=== PATIENT | female | born 2005 | race African-American/Black ===

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

== ENCOUNTER 2025-03-22 19:41 | Emergency (ER) | payer OTHER, SELFPAY ==
[2025-03-22] MEDS ORDERED: ACETAMINOPHEN 500 MG TAB ONE (20:50)
[2025-03-22] MEDS ORDERED: NA CHLORIDE 0.9% 1,000 ML ONE (21:51)
[2025-03-22] MEDS ORDERED: ONDANSETRON 4 MG/2 ML VIAL ONE (21:51)
[2025-03-22 22:02] LABS: Calcium Oxalate Crystals- Ur Few /HPF (None Seen); Sqamous Epithelial 20-50 /HPF (None Seen); Urine Crystals Unidentified Few /HPF (None Seen); Urine Culture Reflex Order REFLEXED; Urine Microscopic Reflex YN ORDER UMIC
[2025-03-22 22:14] LABS: Influenza A Ag Negative; Influenza B Ag Negative; SARS-CoV-2 Antigen Rapid Res Negative (Negative)
[2025-03-22 22:19] LABS: Absolute Lymphocytes (CBC) 0.5 K/uL (0.7-4.9); Hematocrit 41.4 % (36.0-45.0); Hemoglobin 13.3 g/dL (12.0-15.0); MCH 23.5 pg (27.0-35.0); MCHC 32.1 g/dL (32.0-36.0); MCV 73.3 fL (80-100); MPV 8.4 fL (7.6-11.3); Nucleated RBC Absolute Count 0.0 (0-0); Nucleated Red Blood Cells % 0.0 % (0-0); RBC Red Blood Cell Count 5.65 M/uL (3.86-4.86); White Blood Count 8.20 thou/uL (4.3-10.9)
[2025-03-22 22:23] LABS: ALT/SGPT 43.0 U/L (13-56); AST/SGOT 19.0 U/L (15-37); Albumin 3.4 g/dL (3.4-5.0); Albumin/Globulin Ratio 0.7 (1.1-1.8); Alkaline Phosphatase 77.0 U/L (45-117); Anion Gap 9.6 mEq/L (5.0-15.0); BUN Blood Urea Nitrogen 10.0 mg/dL (7-18); Globulin 4.7 g/dL (2.3-3.5); Glucose Level 115.0 mg/dL (74-106); Lipase 37.0 U/L (13-75); Potassium 3.6 mEq/L (3.5-5.1)
[2025-03-22] MEDS ORDERED: CEFTRIAXONE 1000 MG/VIAL ONE (22:47)
[2025-03-22] MEDS ORDERED: NITROFURAN MACRO 100 MG CAP PO ONE (22:47)
--- NOTE | 2025-03-23 00:25 | EDPHYS ---
Physician Documentation [facility] Name: Etelvina Vickers Age: 19 yrs Sex: Female : 2005 Arrival Date: 03/22/2025 Time: 19:41 Bed DX2 Private MD: ED Physician Tacos Larson HPI: 03/22 21:00 This 19 yrs old Black Female presents to ER via Ambulatory with complaints of Vomiting, cp Leg Pain, Back Pain. 21:00 The patient presents to the emergency department with nausea, that is moderate, cp vomiting, that is intermittent, diarrhea, that is intermittent. Onset: The symptoms/episode began/occurred this morning. 21:00 Possible causes: sick contacts, by family, sister. Associated signs and symptoms: cp Pertinent positives: fever, low back pain. Severity of symptoms: in the emergency department the symptoms are unchanged despite home interventions. 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 - Infectious Disease History:: Denies. - Social history:: Smoking status: Patient denies any tobacco usage or history of. ROS: 21:05 Constitutional: Positive for fever, cp 21:05 Eyes: Negative for injury, pain, redness, and discharge, cp 21:05 ENT: Negative for drainage from ear(s), ear pain, difficulty swallowing, difficulty handling secretions, 21:05 Cardiovascular: Negative for chest pain, 21:05 Respiratory: Negative for cough, 21:05 Abdomen/GI: Positive for nausea, vomiting, diarrhea, Negative for abdominal pain, 21:05 Back: Positive for pain at rest, pain with movement, 21:05 Neuro: Negative for altered mental status, 21:05 All other systems are negative, Exam: 21:10 Constitutional: The patient appears in no acute distress, alert, awake, non-toxic, well cp developed, well nourished, obese, uncomfortable, 21:10 Head/Face: Normocephalic, atraumatic. cp 21:10 Eyes: Periorbital structures: appear normal, Conjunctiva: normal, no exudate, no injection, Sclera: no appreciated abnormality, Lids and lashes: appear normal, bilaterally, 21:10 ENT: External ear(s): are unremarkable, Nose: is normal, Mouth: Lips: moist, Oral mucosa: moist, Posterior pharynx: Airway: no evidence of obstruction, patent, erythema, that is mild, exudate, is not appreciated, 21:10 Neck: ROM/movement: is normal, is supple, without pain, no range of motions limitations, no meningismus, 21:10 Chest/axilla: Inspection: normal, 21:10 Cardiovascular: Rate: tachycardic, 21:10 Respiratory: the patient does not display signs of respiratory distress, Respirations: normal, no use of accessory muscles, no retractions, labored breathing, is not present, Breath sounds: are clear throughout, no decreased breath sounds, no stridor, no wheezing, 21:10 Abdomen/GI: Inspection: obese Palpation: abdomen is soft and non-tender, in all quadrants, 21:10 Back: pain, that is mild, of the low back area, ROM is normal, 21:10 Skin: no rash present. Vital Signs: 20:28 BP 140 / 99; Pulse 133; Resp 20; Temp 101.9; Pulse Ox 99% ; Weight 111.13 kg; Height 5 me1 ft. 6 in. ; Pain 10/26; 03/23 00:13 BP 120 / 65; Pulse 108; Resp 18; Pulse Ox 100% on R/A; oe 00:32 BP 123 / 67; Pulse 87; Resp 19; Temp 98.7(O); Pulse Ox 100% on R/A; vk 03/22 20:28 Body Mass Index 39.54 (111.13 kg, 167.64 cm) - Percentile 98.3 % me1 03/22 20:28 Pain Scale: Adult me1 MDM: 03/22 20:29 Medical Screening Exam initiated cp 23:00 Differential diagnosis: gastritis, cholecystitis, pancreatitis, appendicitis, cp diverticulitis, viral gastroenteritis, gastroenteritis, sepsis. 03/23 00:23 Data reviewed: vital signs, nurses notes, lab test result(s), and as a result, I will cp discharge patient. 00:23 Care significantly affected by the following chronic conditions: Hypertension, Obesity. cp 00:23 Counseling: I had a detailed discussion with the patient and/or guardian regarding the cp historical points, exam findings, and any diagnostic results supporting the discharge/admit diagnosis, lab results, to return to the emergency department if symptoms worsen or persist or if there are any questions or concerns that arise at home. Response to treatment: the patient's symptoms have mildly improved after treatment, and as a result, I will discharge patient. 03/22 21:33 Order name: CBC with Diff; Complete Time: 22:42 cp 03/22 21:33 Order name: CMP; Complete Time: 22:42 cp 03/22 21:33 Order name: Lipase; Complete Time: 22:42 cp 03/22 21:33 Order name: UA Rfx Andi Cult if indicated; Complete Time: 22:22 cp 03/22 22:22 Interpretation: Normal except: [facility] Extremely Turbid; UBLD Trace; UPROT TRACE; UUROB cp 1+; UESTR 500; UWBC >50; URBC >50; SQEPI 20-50. 03/22 21:33 Order name: Test, Urine; Complete Time: 22:22 cp 03/22 21:33 Order name: COVID-19 Ag + Flu A+B Ag; Complete Time: 22:22 cp 03/22 22:06 Order name: Urine Culture EDMS 03/22 21:33 Order name: IV Saline Lock; Complete Time: 21:58 cp 03/22 21:33 Order name: Labs collected and sent; Complete Time: 21:58 cp 03/22 22:43 Order name: PO challenge; Complete Time: 00:30 cp 03/22 22:44 Order name: Vital Signs: please update to include temp; Complete Time: 00:41 cp Administered Medications: 03/22 21:00 Drug: Acetaminophen PO 1000 mg PO once Route: PO; me1 21:58 Follow up: Response: No adverse reaction ha1 21:58 Not Given (Duplicate Order): ns 0.9% 1000 ml IV at 1000 ml once; to be given as a bolus ha1 over 60 minutes 22:04 Drug: Ondansetron IVP 4 mg IVP once; over 2 minutes Route: IVP; Site: left antecubital; ha1 22:04 Drug: NS 0.9% IV 1000 ml IV at 1 bolus Per protocol; to be given as a bolus over 60 ha1 minutes Route: IV; Rate: 1 bolus; Site: left antecubital; 22:52 Drug: Rocephin IV 1 grams IV at calculated rate once; Given slow IV push per pharmacy instructions Route: IV; Rate: calculated rate; Site: left antecubital; 22:52 Drug: Nitrofurantoin PO 100 mg PO once; administer with food Route: PO; kl Disposition: 03/23 19:10 Co-signature as Attending Physician, Tacos Larson MD I agree with the assessment sp4 and plan of care. I reviewed the patient's care provided by the Advanced Practice Provider and agree with the diagnosis and treatment plan. Disposition Summary: 03/23/25 00:24 Discharge Ordered Notes: Location: Home cp Problem: new cp Symptoms: have improved cp Condition: Stable cp Diagnosis - UTI/ Urinary tract infection, site not specified cp - Diarrhea, unspecified cp - Nausea with vomiting, unspecified cp - Dehydration cp Followup: cp - With: Private Physician - When: 2 - 3 days - Reason: Worsening of condition Discharge Instructions: - Discharge Summary Sheet cp - Food Choices to Help Relieve Diarrhea, Adult cp - Dehydration, Adult cp - Diarrhea, Adult cp - Nausea and Vomiting, Adult cp - Urinary Tract Infection, Adult cp Forms: - Medication Reconciliation Form cp - Antibiotic Education cp - Prescription Opioid Use cp - Patient Portal Instructions cp - Leadership Thank You Letter cp Prescriptions: - Macrobid 100 mg Oral Capsule - take 1 capsule ORAL route every 12 hours for 7 days; 14 capsule; Refills: 0, cp Product Selection Permitted - ondansetron 8 mg Oral Tablet,disintegrating - take 1 tablet ORAL route every 12 hours As needed; 15 tablet; Refills: 0, cp Product Selection Permitted Signatures: Dispatcher [employer] Rita Andujar RN RN Shen Lowe PA-C PAQuynh Mcqueen cp RN RN ha1 Tacos Larson MD MD sp4 Jennifer Aviles RN RN me1
--- NOTE | 2025-03-23 00:25 | ER ---
Nurse's Notes [facility] Name: Etelvina Vickers Age: 19 yrs Sex: Female : 2005 Arrival Date: 03/22/2025 Time: 19:41 Bed DX2 Private MD: Diagnosis: UTI/ Urinary tract infection, site not specified;Diarrhea, unspecified;Nausea with vomiting, unspecified;Dehydration Presentation: 03/22 20:28 Chief complaint: Patient states: n/v/d, fever, chills, body aches 5/10 (left upper back me1 and posterior left knee), wheezing that started this morning. Coronavirus screen: Vaccine status: Patient reports being unvaccinated. Ebola Screen: No symptoms or risks identified at this time. Initial Sepsis Screen: Does the patient meet any 2 criteria? HR > 90 bpm. Does the patient have a suspected source of infection? No. Patient's initial sepsis screen is negative. Risk Assessment: Do you want to hurt yourself or someone else? Patient reports no desire to harm self or others. Onset of symptoms was March 22, 2025 at 08:30. 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 - Infectious Disease History:: Denies. - Social history:: Smoking status: Patient denies any tobacco usage or history of. Vital Signs: 20:28 BP 140 / 99; Pulse 133; Resp 20; Temp 101.9; Pulse Ox 99% ; Weight 111.13 kg; Height 5 me1 ft. 6 in. ; Pain 5/10; 03/23 00:13 BP 120 / 65; Pulse 108; Resp 18; Pulse Ox 100% on R/A; oe 00:32 BP 123 / 67; Pulse 87; Resp 19; Temp 98.7(O); Pulse Ox 100% on R/A; vk 03/22 20:28 Body Mass Index 39.54 (111.13 kg, 167.64 cm) - Percentile 98.3 % me1 03/22 20:28 Pain Scale: Adult [facility] ED Course: 03/22 19:46 Patient arrived in ED. im 19:54 Shen Estevez PA-C is PHCP. cp 19:54 Tacos Larson MD is Attending Physician. 20:29 Triage completed. mn1 20:29 Arm band placed on Patient placed in waiting room. mn1 21:52 COVID-19 Ag + Flu A+B Ag Sent. ha1 21:52 UA Rfx Andi Cult if indicated Sent. ha1 21:52 Test, Urine Sent. ha1 21:52 Urine collected: clean catch specimen, cloudy, COVID swab sent to lab. Flu and/or RSV ha1 swab sent to lab. 21:58 CBC with Diff Sent. ha1 21:58 CMP Sent. ha1 21:58 Lipase Sent. ha1 22:04 Initial lab(s) drawn, by mn, sent to lab. Inserted saline lock: 22 gauge in left [facility] antecubital area, using aseptic technique. Administered Medications: 21:00 Drug: Acetaminophen PO 1000 mg PO once Route: PO; mn1 21:58 Follow up: Response: No adverse reaction 1 21:58 Not Given (Duplicate Order): ns 0.9% 1000 ml IV at 1000 ml once; to be given as a bolus ha1 over 60 minutes 22:04 Drug: Ondansetron IVP 4 mg IVP once; over 2 minutes Route: IVP; Site: left antecubital; 1 22:04 Drug: NS 0.9% IV 1000 ml IV at 1 bolus Per protocol; to be given as a bolus over 60 ha1 minutes Route: IV; Rate: 1 bolus; Site: left antecubital; 22:52 Drug: Rocephin IV 1 grams IV at calculated rate once; Given slow IV push per pharmacy kl instructions Route: IV; Rate: calculated rate; Site: left antecubital; :52 Drug: Nitrofurantoin PO 100 mg PO once; administer with food Route: PO; kl Outcome: 03/23 00:24 Discharge ordered by . cp 00:41 Discharged to home ambulatory, [facility] 00:41 Condition: stable 00:41 Discharge instructions given to patient, Instructed on discharge instructions, follow up and referral plans. medication usage, Demonstrated understanding of instructions, follow-up care, medications, Prescriptions given X 1, 00:41 Patient left the ED. ha1 Signatures: Rita Ybarra RN RN Shen Lowe PA-C PAJose Carlos Pryor cp, Heidy, RN RN 1 Evy Morris Michelle, RN RN mn1 Araceli Serrano
[2025-03-23 01:19] VITALS: O2SAT 100
[2025-03-23 01:21] VITALS: BP 123/67; TEMP 98.7
== END 2025-03-23 00:41 | disposition home or self-care (01) ==
LOC: ER 19:41
DX: N39.0 Urinary tract infection, site not specified (principal); E86.0 Dehydration; R11.2 Nausea with vomiting, unspecified; R19.7 Diarrhea, unspecified; Z11.52 Encounter for screening for COVID-19
CPT/HCPCS: 87088; 85025; 81001; 87086; 36415; 81025; 83690; 80053; 96375; 96374; 99284; 87428; J2405; J7030; J0696